=== PATIENT | male | born 1975 | race African-American/Black ===

== ENCOUNTER 2020-11-03 10:20 | Inpatient (IN) | payer MEDICAID ==
[~2020-11-03] VITALS: Ht 175.3 cm; Wt 89.9 kg
[2020-11-03] MEDS ORDERED: IPRATROPIUM BROMIDE (0.02%) 0.5MG/2.5ML NEB HHN STA (10:52)
[2020-11-03] MEDS ORDERED: ALBUTEROL (0.083%) 2.5MG/3ML NEB HHN STA (10:52)
[2020-11-03] MEDS ORDERED: PREDNISONE 20MG TABLET PO STA (10:52)
[2020-11-03 11:54] LABS: BASOPHILS % 0.9 % (0.0-2.0); HEMATOCRIT. 42.5 % (42.0-52.0); HEMOGLOBIN. 14.1 g/dL (14.0-18.0); LYMPHOCYTES % 15.5 % (20.0-50.0); MEAN CORPUSCULAR HEMOGLOBIN 30.9 pg (28.0-32.0); MEAN PLATELET VOLUME 7.8 fl (7.4-10.4); MONOCYTES % 10.2 % (2.0-8.0); NEUTROPHILS % 73.4 % (40.0-76.0); PLATELET 108 x1000/uL (130-400); RED BLOOD CELL COUNT 4.57 mill/uL (4.7-6.1); RED CELL DISTRIBUTION WIDTH 15.9 % (11.6-14.6)
[2020-11-03 11:58] LABS: CHLORIDE 103 mEq/L (98-107)
[2020-11-04] MEDS ORDERED: IPRATROPIUM/ALBUTEROL 0.5-3(2.5)MG/3ML NEB HHN PRN (05:00)
[2020-11-04] MEDS ORDERED: ACETAMINOPHEN 325MG TABLET PO PRN (05:00)
[2020-11-04] MEDS ORDERED: ASPIRIN 81MG TABLET PO NR (05:00)
[2020-11-04 06:28] LABS: HEMATOCRIT 42.2 % (42.0-52.0); HEMOGLOBIN 14.2 g/dL (14.0-18.0); MEAN CORPUSCULAR HEMOGLOBIN 31.6 pg (28.0-32.0); MEAN CORPUSCULAR VOLUME 93.8 fL (80.0-94.0); PLATELET 108 x1000/uL (130-400); RED CELL DISTRIBUTION WIDTH 16.1 % (11.6-14.6)
[2020-11-04] MEDS: AMLODIPINE 5MG TABLET PO SCH (10:18)
[2020-11-04 11:00] VITALS: BP 125/98
[2020-11-04 12:00] VITALS: BP 125/98
[2020-11-04] MEDS: HYDROCODONE/ACETAMINOPHEN 5/325MG TABLET PO PRN ×3 (13:44→22:53)
[2020-11-04 16:00] VITALS: BP 122/87
[2020-11-04] MEDS ORDERED: ALBU05 IH (16:54)
[2020-11-04] MEDS: ENOXAPARIN 80MG/0.8ML SYR SUBCUT SCH (17:00)
[2020-11-04 20:00] VITALS: BP 115/79
[2020-11-04] MEDS ORDERED: IOHEXOL-350 100 ML BOTTLE ONE (21:05)
[2020-11-04 22:15] VITALS: BP 109/83
[2020-11-05] VITALS (7 sets, daily range): BP systolic 101–113; BP diastolic 72–82
[2020-11-05] MEDS: ENOXAPARIN 80MG/0.8ML SYR SUBCUT SCH (05:19)
[2020-11-05 07:22] LABS: INR 1.1; PROTHROMBIN TIME 11.5 sec (9.6-11.0)
[2020-11-05] MEDS: AMLODIPINE 5MG TABLET PO SCH (08:48)
[2020-11-05] MEDS ORDERED: HEPARIN 5000 UNITS/ML VIAL IV PRN ×2 (14:15)
[2020-11-05 15:39] LABS: INR 1.1; PROTHROMBIN TIME 11.6 sec (9.6-11.0)
[2020-11-05] MEDS ORDERED: HEPARIN 80 UNITS/KG BOLUS IV NR (16:30)
[2020-11-05] MEDS: HEPARIN 25,000 UNITS PREMIX 250 ML IV PRN (16:51)
[2020-11-05] MEDS: HYDROCODONE/ACETAMINOPHEN 5/325MG TABLET PO PRN (17:01)
[2020-11-06 04:30] VITALS: BP 110/76
[2020-11-06 07:16] LABS: BASOPHILS % 0.4 % (0.0-2.0); EOSINOPHILS % 0.1 % (0.0-5.0); HEMATOCRIT. 40.7 % (42.0-52.0); HEMOGLOBIN. 13.5 g/dL (14.0-18.0); LYMPHOCYTES % 22.9 % (20.0-50.0); MEAN CORPUSCULAR HEMOGLOBIN 31.7 pg (28.0-32.0); MEAN CORPUSCULAR VOLUME 95.4 fL (80.0-94.0); MEAN PLATELET VOLUME 8.4 fl (7.4-10.4); MONOCYTES % 12.6 % (2.0-8.0); PLATELET 133 x1000/uL (130-400); RED BLOOD CELL COUNT 4.27 mill/uL (4.7-6.1); RED CELL DISTRIBUTION WIDTH 15.9 % (11.6-14.6)
[2020-11-06 08:00] VITALS: BP 111/77
[2020-11-06 08:35] LABS: CHLORIDE 101 mEq/L (98-107)
[2020-11-06] MEDS: AMLODIPINE 5MG TABLET PO SCH (09:00)
[2020-11-06] MEDS: HEPARIN 25,000 UNITS PREMIX 250 ML IV PRN (10:11)
[2020-11-06 12:06] VITALS: BP 107/74
[2020-11-06] MEDS: HYDROCODONE/ACETAMINOPHEN 5/325MG TABLET PO PRN (16:27)
[2020-11-06 16:30] VITALS: BP 109/7
[2020-11-06 19:30] VITALS: BP 114/68
[2020-11-06 21:44] VITALS: BP 131/93
[2020-11-07] VITALS (7 sets, daily range): BP systolic 111–129; BP diastolic 54–87
[2020-11-07] MEDS: HEPARIN 25,000 UNITS PREMIX 250 ML IV PRN ×2 (04:26→21:42)
[2020-11-07 06:55] LABS: CHLORIDE 101 mEq/L (98-107)
[2020-11-07 07:07] LABS: BASOPHILS % 0.4 % (0.0-2.0); EOSINOPHILS % 0.2 % (0.0-5.0); HEMATOCRIT. 40.1 % (42.0-52.0); HEMOGLOBIN. 13.3 g/dL (14.0-18.0); LYMPHOCYTES % 22.5 % (20.0-50.0); MEAN CORPUSCULAR HEMOGLOBIN 31.6 pg (28.0-32.0); MEAN PLATELET VOLUME 7.8 fl (7.4-10.4); MONOCYTES % 14.9 % (2.0-8.0); PLATELET 158 x1000/uL (130-400); RED BLOOD CELL COUNT 4.22 mill/uL (4.7-6.1); RED CELL DISTRIBUTION WIDTH 15.9 % (11.6-14.6)
[2020-11-07] MEDS: AMLODIPINE 5MG TABLET PO SCH (09:17)
[2020-11-07] MEDS: HYDROCODONE/ACETAMINOPHEN 5/325MG TABLET PO PRN (18:06)
[2020-11-07] MEDS ORDERED: LACTULOSE 20G/30ML UDC PO NR (20:00)
[2020-11-08] VITALS (10 sets, daily range): BP systolic 93–117; BP diastolic 61–90
[2020-11-08 07:14] LABS: HEMATOCRIT. 38.4 % (42.0-52.0); HEMOGLOBIN. 12.7 g/dL (14.0-18.0); MEAN CORPUSCULAR HEMOGLOBIN 31.2 pg (28.0-32.0); MEAN CORPUSCULAR VOLUME 94.5 fL (80.0-94.0); MEAN PLATELET VOLUME 7.3 fl (7.4-10.4); PLATELET 197 x1000/uL (130-400); RED BLOOD CELL COUNT 4.06 mill/uL (4.7-6.1); RED CELL DISTRIBUTION WIDTH 15.5 % (11.6-14.6)
[2020-11-08 07:44] LABS: CHLORIDE 102 mEq/L (98-107)
[2020-11-08] MEDS ORDERED: IPRATROPIUM/ALBUTEROL 0.5-3(2.5)MG/3ML NEB HHN PRN (07:45)
[2020-11-08] MEDS ORDERED: ACETAMINOPHEN 325MG TABLET PO PRN (08:00)
[2020-11-08] MEDS: AMLODIPINE 5MG TABLET PO SCH (09:27)
[2020-11-08 11:01] LABS: PLATELET ESTIMATE NORMAL
[2020-11-08] MEDS: APIXABAN 5 MG TABLET PO SCH (17:43)
[2020-11-08] MEDS: HYDROCODONE/ACETAMINOPHEN 5/325MG TABLET PO PRN (20:47)
[2020-11-09] VITALS (10 sets, daily range): BP systolic 95–124; BP diastolic 52–76
[2020-11-09] MEDS: APIXABAN 5 MG TABLET PO SCH ×2 (05:57→18:18)
[2020-11-09] MEDS: AMLODIPINE 5MG TABLET PO SCH (08:03)
[2020-11-09 09:12] LABS: BG BASE EXCESS 0.4 mmol/L (-2.0-2.0); BG CARBOXYHEMOGLOBIN 0.4 % (0.5-1.5); BG DEOXYHEMOGLOBIN 4.4 % (0.0-5.0); BG FRACTION INSPIRED OXYGEN 21; BG HCO3 ACT 22.4 mmol/L (22.0-26.0); BG OXYGEN SATURATION 95.6 % (92.0-98.5); BG OXYHEMOGLOBIN 95.2 % (94.0-97.0); BG PCO2 29.1 mmHg (35.0-45.0); BG PH 7.505 (7.350-7.450); BG SAMPLE SITE RIGHT BRACHIAL; BG VENT MODE ROOM AIR
[2020-11-10] VITALS: BP 112/69
[2020-11-10 04:00] VITALS: BP 115/70
[2020-11-10] MEDS: APIXABAN 5 MG TABLET PO SCH (06:55)
[2020-11-10 07:08] LABS: HEMATOCRIT. 37.5 % (42.0-52.0); HEMOGLOBIN. 12.5 g/dL (14.0-18.0); MEAN CORPUSCULAR HEMOGLOBIN 31.7 pg (28.0-32.0); MEAN CORPUSCULAR VOLUME 94.8 fL (80.0-94.0); MEAN PLATELET VOLUME 7.1 fl (7.4-10.4); PLATELET 271 x1000/uL (130-400); RED BLOOD CELL COUNT 3.95 mill/uL (4.7-6.1); RED CELL DISTRIBUTION WIDTH 15.8 % (11.6-14.6)
[2020-11-10 07:50] LABS: CHLORIDE 104 mEq/L (98-107)
[2020-11-10 08:00] VITALS: BP 101/73
[2020-11-10] MEDS: AMLODIPINE 5MG TABLET PO SCH (08:29)
[2020-11-10 10:00] VITALS: BP 91/76
[2020-11-10] MEDS ORDERED: APIX5TAB MT (10:54)
[2020-11-10] MEDS ORDERED: AMLO5TAB88 PO (10:54)
[2020-11-10 12:00] VITALS: BP 97/62
[2020-11-10 12:37] VITALS: BP 97/62
[2020-11-10 14:48] LABS: PLATELET ESTIMATE NORMAL
[2020-11-15] MEDS ORDERED: APIXABAN 5 MG TABLET PO SCH (18:00)
== END 2020-11-10 15:20 | disposition home or self-care (01) | DRG 134 ==
LOC: ER 10:20 → MICUSO 13:35 → 7EST 11-04 11:26 → 6WST 11-04 22:45 → 3WST 11-05 15:32
PROVIDERS: ADMIT Internal Medicine; ATTEND Internal Medicine
DX: I26.09 Other pulmonary embolism with acute cor pulmonale (principal); I21.A1 Myocardial infarction type 2; I82.411 Acute embolism and thrombosis of right femoral vein; I82.431 Acute embolism and thrombosis of right popliteal vein; J96.01 Acute respiratory failure with hypoxia; J45.901 Unspecified asthma with (acute) exacerbation; D69.6 Thrombocytopenia, unspecified; E86.1 Hypovolemia; E87.1 Hypo-osmolality and hyponatremia; R74.01 Elevation of levels of liver transaminase levels; F17.210 Nicotine dependence, cigarettes, uncomplicated; Z20.822 Contact with and (suspected) exposure to COVID-19; I11.0 Hypertensive heart disease with heart failure; I27.29 Other secondary pulmonary hypertension; I50.810 Right heart failure, unspecified; Z90.49 Acquired absence of other specified parts of digestive tract; I25.2 Old myocardial infarction; Z88.0 Allergy status to penicillin; Z71.6 Tobacco abuse counseling
CPT/HCPCS: 36415; 36600; 71045; 71275; 80048; 80053; 80061; 82375; 82728; 82805; 82962; 83615; 83880; 84145; 84443; 84484; 85025; 85027; 85379; 85384; 93005; 93306; 93970; 94640; 97161; 99291; J1644; J1650; J7512; Q9967; U0003

== ENCOUNTER 2024-05-13 15:49 | Inpatient (IN) | payer MEDICAID ==
[~2024-05-13] VITALS: Ht 177.8 cm; Wt 68.9 kg
[~2024-05-13 15:49] MED LIST: ALBU05 IH; AMLO5TAB88 PO; APIX5TAB MT
[2024-05-13] MEDS: SODIUM CHLORIDE 0.9% 1000ML BAG (SEPSIS BOLUS) IV ONE (16:27)
[2024-05-13] MEDS: LEVOFLOXACIN 500MG PREMIX 100 ML IV ONE (16:27)
[2024-05-13 17:18] LABS: BASOPHILS % 0.9 % (0.0-2.0); EOSINOPHILS % 0.3 % (0.0-5.0); HEMATOCRIT. 41.4 % (42.0-52.0); HEMOGLOBIN. 13.9 g/dL (14.0-18.0); LYMPHOCYTES % 13.7 % (20.0-50.0); MEAN CORPUSCULAR HEMOGLOBIN 32.6 pg (28.0-32.0); MEAN CORPUSCULAR HGB CONC 33.6 g/dL (31.0-37.0); MEAN CORPUSCULAR VOLUME 97.1 fL (80.0-94.0); MEAN PLATELET VOLUME 7.9 fl (7.4-10.4); MONOCYTES % 13.7 % (2.0-8.0); NEUTROPHILS % 71.4 % (40.0-76.0); PLATELET 160 x1000/uL (130-400); RED BLOOD CELL COUNT 4.26 mill/uL (4.7-6.1); RED CELL DISTRIBUTION WIDTH 13.1 % (11.6-14.6); WHITE BLOOD COUNT 6.7 x1000/uL (4.5-11.0)
[2024-05-13 17:19] LABS: CHLORIDE 94 mEq/L (98-107); POTASSIUM 3.6 mEq/L (3.5-5.1); SODIUM 127 mEq/L (136-145)
[2024-05-13 17:20] LABS: CARBON DIOXIDE 22 mEq/L (21-32)
[2024-05-13 17:21] LABS: CALCIUM 9.1 mg/dL (8.7-10.4)
[2024-05-13 17:25] LABS: CREATININE 1.5 mg/dL (0.6-1.3); GLUCOSE 94 mg/dL (70-105); UREA NITROGEN BLOOD 23 mg/dL (9-23)
[2024-05-13 17:26] LABS: TROPONIN I HIGH SENSITIVITY 4 ng/L (3.0-53)
[2024-05-13 17:27] LABS: LACTIC ACID 2.8 mmol/L (0.4-2.0)
[2024-05-13 17:45] LABS: INR 1.1; PROTHROMBIN TIME 11.9 sec (9.6-11.0)
[2024-05-13 20:07] LABS: TROPONIN I HIGH SENSITIVITY 5 ng/L (3.0-53)
[2024-05-13 20:55] LABS: CLARITY URINE CLEAR (CLEAR); COLOR URINE ORANGE (YELLOW); GLUCOSE URINE NEGATIVE (NEGATIVE); KETONES URINE 1+ (NEGATIVE); LEUKOCYTE ESTERASE URINE TRACE (NEGATIVE); NITRITE URINE POSITIVE (NEGATIVE); OCCULT BLOOD URINE NEGATIVE (NEGATIVE); PH URINE 5.5 (4.5-8.0); PROTEIN URINE NEGATIVE (NEGATIVE); SPECIFIC GRAVITY URINE 1.023 (1.005-1.030)
[2024-05-13 21:22] LABS: BACTERIA URINE 1+; RBC URINE 0-2 /hpf (0-2); SQUAMOUS EPITHELIAL CELL URINE FEW /lpf (RARE/1+); WBC URINE 0-2 /hpf (0-2)
[2024-05-13] MEDS ORDERED: CLONIDINE 0.1MG TABLET PO PRN (23:45)
[2024-05-13] MEDS ORDERED: ACETAMINOPHEN 325MG TABLET PO PRN (23:45)
[2024-05-13] MEDS ORDERED: IPRATROPIUM/ALBUTEROL 0.5-3(2.5)MG/3ML NEB NEB PRN (23:45)
[2024-05-13] MEDS ORDERED: ZOLPIDEM TARTRATE 5MG TABLET PO PRN (23:45)
[2024-05-14] MEDS: SODIUM CHLORIDE 0.9% 1,000 ML IV SCH
[2024-05-14] MEDS ORDERED: MORPHINE SULFATE 2 MG/ML INJ (NOT FOR IM USE) IV PRN
[2024-05-14] MEDS: ENOXAPARIN 80MG/0.8ML SYR SUBCUT SCH (01:20)
[2024-05-14 05:52] LABS: EOSINOPHILS % 1.7 % (0.0-5.0); HEMATOCRIT. 42.1 % (42.0-52.0); HEMOGLOBIN. 13.9 g/dL (14.0-18.0); LYMPHOCYTES % 22.1 % (20.0-50.0); MEAN CORPUSCULAR HEMOGLOBIN 32.1 pg (28.0-32.0); MEAN CORPUSCULAR HGB CONC 33.1 g/dL (31.0-37.0); MONOCYTES % 14.6 % (2.0-8.0); NEUTROPHILS % 60.6 % (40.0-76.0); PLATELET 177 x1000/uL (130-400); RED BLOOD CELL COUNT 4.33 mill/uL (4.7-6.1); RED CELL DISTRIBUTION WIDTH 12.9 % (11.6-14.6)
[2024-05-14 05:53] LABS: CHLORIDE 100 mEq/L (98-107); POTASSIUM 3.8 mEq/L (3.5-5.1); SODIUM 130 mEq/L (136-145)
[2024-05-14 05:54] LABS: CARBON DIOXIDE 21 mEq/L (21-32)
[2024-05-14 05:55] LABS: CALCIUM 9.4 mg/dL (8.7-10.4)
[2024-05-14 05:59] LABS: CREATINE KINASE MB FRACTION < 0.5 ng/mL (0.5-3.6); GLUCOSE 115 mg/dL (70-105); TROPONIN I HIGH SENSITIVITY 7 ng/L (3.0-53); UREA NITROGEN BLOOD 17 mg/dL (9-23)
[2024-05-14] MEDS: IOHEXOL-350 100 ML BOTTLE ONE (06:55)
[2024-05-14 08:00] VITALS: BP 116/74; PULSE 83; RESP 16; TEMP 36.418
[2024-05-14] MEDS ORDERED: ENOXAPARIN 40MG/0.4ML SYR SUBCUT SCH (09:00)
[2024-05-14 12:00] VITALS: BP 116/74; PULSE 83; RESP 16; TEMP 36.3918; O2SAT 100
[2024-05-14] MEDS: NICOTINE 14MG PATCH TD SCH (13:26)
[2024-05-14] MEDS ORDERED: LEVOFLOXACIN 750MG PREMIX 150 ML IV SCH (15:00)
[2024-05-14] MEDS ORDERED: LEVOFLOXACIN 500MG PREMIX 100 ML IV SCH (16:00)
[2024-05-14] MEDS: LORAZEPAM 2MG/ML INJ IV PRN (16:20)
[2024-05-14] MEDS: THIAMINE HCL 100MG TABLET PO SCH (16:33)
[2024-05-14] MEDS: CEFTRIAXONE 1GM/50ML 50 ML IV SCH (17:18)
[2024-05-14 18:40] LABS: CREATINE KINASE MB FRACTION < 0.5 ng/mL (0.5-3.6)
[2024-05-14 18:51] LABS: TROPONIN I HIGH SENSITIVITY < 4 ng/L (3.0-53)
[2024-05-14 20:00] VITALS: BP 121/72; PULSE 70; RESP 18; TEMP 36.114; O2SAT 98
[2024-05-15] VITALS: BP 118/67; PULSE 88; RESP 20; TEMP 36.6696; O2SAT 97
[2024-05-15 04:00] VITALS: BP 114/68; PULSE 66; RESP 18; TEMP 36.22512; O2SAT 94
[2024-05-15] MEDS: CHLORDIAZEPOXIDE 25MG CAPSULE PO SCH (09:00)
[2024-05-15 12:00] VITALS: BP 111/89; PULSE 70; RESP 18; TEMP 36.33624; O2SAT 100
[2024-05-15 15:52] LABS: AMMONIA < 17 uMol/L (<32)
[2024-05-15 16:00] VITALS: BP_SYST 106; BP_SYST 109; BP_DIAS 71; BP_DIAS 74; PULSE 91; RESP 18; TEMP 36.3918; O2SAT 98
[2024-05-15 20:00] VITALS: BP 104/76; PULSE 81; RESP 20; TEMP 36.114; O2SAT 100
[2024-05-16 04:00] VITALS: BP 80/106; PULSE 67; RESP 20; TEMP 36.3918; O2SAT 100
[2024-05-16 08:00] VITALS: BP 118/85; PULSE 89; RESP 18; TEMP 37.05852; O2SAT 97
[2024-05-16 12:00] VITALS: BP 103/74; PULSE 73; RESP 18; TEMP 36.50292; O2SAT 99
[2024-05-16 16:00] VITALS: BP 111/72; PULSE 74; RESP 18; TEMP 35.72508; O2SAT 99
[2024-05-16 20:00] VITALS: BP 110/79; PULSE 88; RESP 16; TEMP 36.28068; O2SAT 100
[2024-05-17] VITALS: BP 121/87; PULSE 85; RESP 17; TEMP 36.33624; O2SAT 100
[2024-05-17 04:00] VITALS: BP 112/79; PULSE 99; RESP 16; TEMP 36.28068; O2SAT 100
[2024-05-17 07:04] LABS: BASOPHILS % 2.3 % (0.0-2.0); EOSINOPHILS % 2.8 % (0.0-5.0); HEMATOCRIT. 40.3 % (42.0-52.0); HEMOGLOBIN. 13.2 g/dL (14.0-18.0); LYMPHOCYTES % 35.5 % (20.0-50.0); MEAN CORPUSCULAR HEMOGLOBIN 32.2 pg (28.0-32.0); MEAN CORPUSCULAR HGB CONC 32.8 g/dL (31.0-37.0); MEAN PLATELET VOLUME 7.8 fl (7.4-10.4); MONOCYTES % 13.4 % (2.0-8.0); PLATELET 250 x1000/uL (130-400); RED BLOOD CELL COUNT 4.11 mill/uL (4.7-6.1); RED CELL DISTRIBUTION WIDTH 13.5 % (11.6-14.6); WHITE BLOOD COUNT 5.5 x1000/uL (4.5-11.0)
[2024-05-17 07:13] LABS: CARBON DIOXIDE 22 mEq/L (21-32); CHLORIDE 103 mEq/L (98-107); POTASSIUM 3.9 mEq/L (3.5-5.1); SODIUM 133 mEq/L (136-145)
[2024-05-17 07:19] LABS: CREATININE 0.8 mg/dL (0.6-1.3); GLUCOSE 119 mg/dL (70-105); UREA NITROGEN BLOOD 12 mg/dL (9-23)
[2024-05-17 08:00] VITALS: BP 109/82; PULSE 74; RESP 18; TEMP 36.3918; O2SAT 99
[2024-05-17] MEDS: ACETAMINOPHEN 325MG TABLET PO PRN (09:18)
[2024-05-17] MEDS: QUETIAPINE FUMARATE 25MG TABLET PO SCH (09:18)
[2024-05-17] MEDS: ONDANSETRON HCL 4MG/2ML INJ IV PRN (09:18)
[2024-05-17] MEDS ORDERED: NALOXONE HCL 0.4MG/ML VIAL IV PRN (10:00)
[2024-05-17] MEDS: APIXABAN 5 MG TABLET PO SCH (10:00)
[2024-05-17 12:00] VITALS: BP 104/75; PULSE 90; RESP 18; TEMP 35.94732; O2SAT 98
[2024-05-17 16:00] VITALS: BP 105/78; PULSE 77; RESP 18; RESP 20; TEMP 36.50292; O2SAT 100
[2024-05-17 20:00] VITALS: BP 105/83; PULSE 81; RESP 18; TEMP 36.61404; O2SAT 99
[2024-05-18 04:00] VITALS: BP 112/75; PULSE 76; RESP 18; TEMP 36.6696; O2SAT 99
[2024-05-18 08:00] VITALS: BP 113/81; PULSE 95; RESP 20; TEMP 36.6696; O2SAT 98
[2024-05-18 12:00] VITALS: BP 116/86; PULSE 89; RESP 20; TEMP 36.22512; O2SAT 100
[2024-05-18] MEDS: SILDENAFIL CITRATE 20MG TABLET PO SCH (14:39)
[2024-05-18 20:00] VITALS: BP 102/73; PULSE 95; RESP 20; TEMP 36.3918; O2SAT 100
[2024-05-18] MEDS: QUETIAPINE FUMARATE 25MG TABLET PO SCH (21:51)
[2024-05-19] VITALS: BP 110/70; PULSE 96; RESP 20; TEMP 36.44736; O2SAT 100
[2024-05-19 04:00] VITALS: BP 113/70; PULSE 90; RESP 20; TEMP 36.3918; O2SAT 100
[2024-05-19 08:00] VITALS: BP 100/71; PULSE 81; RESP 20; TEMP 37.00296; O2SAT 100
[2024-05-19 12:00] VITALS: BP 97/70; PULSE 98; RESP 20; TEMP 36.61404; O2SAT 100
[2024-05-19 16:00] VITALS: BP 101/70; PULSE 88; RESP 20; TEMP 36.61404; O2SAT 100
[2024-05-19 20:00] VITALS: BP 109/77; PULSE 88; RESP 20; TEMP 35.72508; O2SAT 95
[2024-05-20] VITALS: BP 96/68; PULSE 83; RESP 18; TEMP 33.50268; O2SAT 100
[2024-05-20 04:00] VITALS: BP 107/72; PULSE 74; RESP 18; TEMP 36.33624; O2SAT 100
[2024-05-20 08:00] VITALS: BP 107/73; PULSE 67; RESP 18; TEMP 36.89184; O2SAT 99
[2024-05-20 12:00] VITALS: BP 106/78; PULSE 68; RESP 18; TEMP 36.33624; O2SAT 98
[2024-05-20] MEDS ORDERED: THIA100T72 PO (14:08)
[2024-05-20] MEDS ORDERED: QUET25TA PO (14:08)
[2024-05-20] MEDS ORDERED: REV20 PO (14:08)
[2024-05-20] MEDS ORDERED: APIX5TAB PO (14:08)
[2024-05-20 14:21] VITALS: BP 106/78; PULSE 68; TEMP 97.4; O2SAT 98
[2024-05-20 16:00] VITALS: BP 105/77; PULSE 68; RESP 21; TEMP 36.28068; O2SAT 94
== END 2024-05-20 19:42 | disposition home or self-care (01) | DRG 720 ==
LOC: ER 15:49 → 5WST 21:42 → 8WST 05-14 12:43 → 6WST 05-18 16:44
PROVIDERS: ADMIT Internal Medicine; ATTEND Internal Medicine
DX: A41.9 Sepsis, unspecified organism (principal); I27.20 Pulmonary hypertension, unspecified; I82.411 Acute embolism and thrombosis of right femoral vein; E87.1 Hypo-osmolality and hyponatremia; N39.0 Urinary tract infection, site not specified; I10 Essential (primary) hypertension; F10.139 Alcohol abuse with withdrawal, unspecified; F17.200 Nicotine dependence, unspecified, uncomplicated; J45.909 Unspecified asthma, uncomplicated; Z79.01 Long term (current) use of anticoagulants; Z20.822 Contact with and (suspected) exposure to COVID-19; Z88.0 Allergy status to penicillin; Z91.148 Patient's other noncompliance with medication regimen for other reason; Z91.199 Patient's noncompliance with other medical treatment and regimen due to unspecified reason; Z86.711 Personal history of pulmonary embolism; F10.129 Alcohol abuse with intoxication, unspecified; E86.0 Dehydration; I82.511 Chronic embolism and thrombosis of right femoral vein
CPT/HCPCS: 36415; 71045; 71275; 80048; 80320; 81003; 82140; 82553; 83605; 84145; 84484; 85025; 85379; 87426; 93005; 93306; 93970; 97162; 99285; J0696; J1650; J1956; J2060; J2405; J7030; Q9967; G0480